=== PATIENT | female | born 1955 | race Caucasian/White ===

== ENCOUNTER 2016-07-13 16:15 | Emergency (ER) | payer BC ==
[~2016-07-13] VITALS: Ht 165.1 cm; Wt 76.3 kg
[~2016-07-13 16:15] MED LIST: ALBU8I INH; PRED20 PO
[2016-07-13 16:33] VITALS: BP 125/86; PULSE 79; RESP 15; TEMP 98.2; O2SAT 98
== END 2016-07-13 17:09 | disposition left against medical advice (07) ==
LOC: PHED 16:15
DX: M25.531 Pain in right wrist (principal); Z53.29 Procedure and treatment not carried out because of patient's decision for other reasons
CPT/HCPCS: 99281